=== PATIENT | male | born 1965 | race Caucasian/White ===

== ENCOUNTER 2017-04-16 07:31 | Emergency (ER) | payer OTHER ==
[~2017-04-16] VITALS: Ht 167.6 cm; Wt 62.2 kg
[2017-04-16] MEDS ORDERED: LIDOCAINE 1%, 20ML ONE (08:19)
[2017-04-16] MEDS ORDERED: KETOROLAC 30 MG/1 ML ONE (08:19)
[2017-04-16] MEDS ORDERED: SODIUM CHLORIDE 0.9% 1,000ML IVBOLUS ONE (08:30)
[2017-04-16] MEDS ORDERED: KETOROLAC 30 MG/1 ML IM ONE (08:30)
[2017-04-16 09:00] LABS: BLOOD UREA NITROGEN 17 mg/dL (7-18)
[2017-04-16 09:06] LABS: HEMATOCRIT 43.4 % (39.2-51.8); HEMOGLOBIN 15.1 g/dL (13.7-18.0); WHITE BLOOD COUNT 12.3 x10^3/uL (3.4-10)
[2017-04-16 11:05] VITALS: BP 147/89
== END 2017-04-16 11:21 | disposition home or self-care (01) ==
LOC: ED 09:21
DX: L03.115 Cellulitis of right lower limb (principal)
CPT/HCPCS: 36415; 73564; 80048; 82040; 82945; 83615; 84157; 84550; 84560; 85025; 85651; 85810; 86140; 87070; 87205; 89050; 89060; 96360; 96361; 96372; 99285; J1885; J7030

== ENCOUNTER 2020-04-25 19:41 | Inpatient (IN) | payer MEDICAID, OTHER ==
[~2020-04-25] VITALS: Ht 180.3 cm; Wt 62.7 kg
--- NOTE | 2020-04-25 19:57 | NUR ---
LATE ENTRY SUMMARY NOTE: EKG DONE. PT IMMEDIATELY PLACED ON CARDIAC, BP AND O2 MONITORS. RESPIRATOINS EVEN AND UNLABORED. PT A&OX4, ONLY KNOWS YEAR, WHEN ASKED WHAT DAY IT IS STATES "I DON'T KEEP TRACK OF THAT." PT'S ONLY CONCERN IS LEFT SIDE POOL, DENIES LIGHT SENSITIVITY. PT'S PUPILS ARE SMALL IN SIZE AND THEREFORE MINIMALLY REACTIVE. PER EMS: GIRLFRIEND CALLED BECAUSE HE'S BEEN ACTING "STRANGE OVER THE LAST COUPLE OF DAYS, HE'S BEEN MORE AGGRESSIVE AND RUDE." A COUPLE DAYS AGO PT HAD A PERIOD OF DIFFICULTY SPEAKING THAT SINCE RESOLVED. PT DENIES ANY MEDICAL HX, STATES "I DON'T KNOW, IT'S BEEN A LONG TIME SINCE I'VE SEEN A DOCTOR OR GOTTEN MEDS." MOTHER HAD BRAIN ANEURYSM WHEN SHE WAS APPROX 60-65YO.
[2020-04-25] MEDS ORDERED: DIPHENHYDRAMINE 25 MG CAPSULE PO ONE (20:00)
[2020-04-25] MEDS ORDERED: ONDANSETRON 2MG/ML, 2ML IVPush ONE (20:00)
[2020-04-25] MEDS ORDERED: MORPHINE SULFATE 4 MG/ML, 1ML IVPush ONE ×2 (20:00→21:00)
[2020-04-25] MEDS ORDERED: METOCLOPRAMIDE 5 MG/ML, 2ML IVPush ONE (20:00)
--- NOTE | 2020-04-25 20:00 | NUR ---
PT TO IMAGING.
[2020-04-25 20:08] LABS: BASOPHILS # (AUTO) 0.04 x10^3/uL (0-0.1); BASOPHILS % (AUTO) 0 % (0-1); EOSINOPHILS # (AUTO) 0.16 x10^3/uL (0-0.4); EOSINOPHILS % (AUTO) 1 % (1-7); LYMPHOCYTES # (AUTO) 1.92 x10^3/uL (1-3.4); LYMPHOCYTES % (AUTO) 16 % (22-44); MD NO; MEAN CORPUSCULAR HEMOGLOBIN 31.4 pg (27.5-34.5); MEAN CORPUSCULAR HGB CONC 33.3 g/dL (33.2-36.2); MEAN CORPUSCULAR VOLUME 94.3 fL (81-97); MONOCYTES # (AUTO) 0.71 x10^3/uL (0.2-0.8); MONOCYTES % (AUTO) 6 % (2-9); NEUTROPHILS # (AUTO) 9.14 x10^3/uL (1.8-6.8); NEUTROPHILS % (AUTO) 76 % (42-75); PLATELET COUNT 355 x10^3/uL (130-400); RED BLOOD COUNT 4.69 x10^6/uL (4.38-5.82); RED CELL DISTRIBUTION WIDTH 13.2 % (9.4-14.8)
[2020-04-25] MEDS ORDERED: METOCLOPRAMIDE 5 MG/ML, 2ML ONE (20:13)
[2020-04-25] MEDS ORDERED: DIPHENHYDRAMINE 25 MG CAPSULE ONE (20:13)
[2020-04-25 20:19] LABS: ANION GAP 4 mmol/L (5-15); CALCIUM 8.9 mg/dL (8.5-10.1); CHLORIDE 111 mmol/L (98-107); CREATININE 0.82 mg/dL (0.7-1.3)
[2020-04-25] MEDS ORDERED: MORPHINE SULFATE 4 MG/ML, 1ML ONE (20:36)
[2020-04-25] MEDS ORDERED: ONDANSETRON 2MG/ML, 2ML ONE ×2 (20:36→23:04)
--- NOTE | 2020-04-25 20:41 | NUR ---
PT ABLE TO USE URINAL TO URINATE. ERP TO BEDSIDE.
[2020-04-25] MEDS: SODIUM CHLORIDE 0.9% 1,000 ML IV SCH (20:52)
[2020-04-25 20:53] LABS: INTERNATIONAL NORMALIZED RATIO 0.91 (0.93-1.1); PROTHROMBIN TIME 9.4 Seconds (9.6-11.5)
[2020-04-25] MEDS ORDERED: ONDANSETRON 2MG/ML, 2ML IVPush PRN (21:00)
[2020-04-25] MEDS ORDERED: ENALAPRILAT 1.25 MG/ML, 2ML IV ONE (21:00)
[2020-04-25] MEDS ORDERED: LEVETIRACETAM 100 MG/ML, 5ML IV SCH (21:00)
[2020-04-25] MEDS ORDERED: DOCUSATE 100 MG CAPSULE PO PRN (21:00)
--- NOTE | 2020-04-25 21:05 | NUR ---
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 PT HOB AT 45* PER ERP INSTRUCTION.
[2020-04-25 21:09] LABS: AMPHETAMINE SCREEN, URINE Positive (Negative); BARBITURATE SCREEN, URINE Negative (Negative); BENZODIAZEPINE SCREEN, URINE Negative (Negative); CANNABINOID SCREEN, URINE Negative (Negative); COCAINE SCREEN, URINE Negative (Negative); METHADONE SCREEN, URINE Negative (Negative); OPIATE SCREEN, URINE Negative (Negative)
--- NOTE | 2020-04-25 21:17 | NUR ---
ADMITTING MD AND NEUROSURGERY AT BEDSIDE. PT ANSWERING ALL QUESTIONS.
[2020-04-25] MEDS ORDERED: ENALAPRILAT 1.25 MG/ML, 1ML ONE (21:28)
--- NOTE | 2020-04-25 21:38 | NUR ---
PT MEDICATED TO MAR FOR BP. PER NEUROSURGEON VERBAL PARAMETERS STATED SBP OF 160.
[2020-04-25] MEDS ORDERED: THROMBIN 5,000 UNIT VIAL TP ONE (21:57)
[2020-04-25] MEDS ORDERED: BACITRACIN 50,000 UNIT ONE (21:57)
[2020-04-25] MEDS ORDERED: FUROSEMIDE 20 MG/2 ML ONE (21:57)
[2020-04-25] MEDS ORDERED: BUPIVACAINE/EPI 0.5% 1:200K ONE (21:57)
[2020-04-25] MEDS ORDERED: MANNITOL PMX 20% 0 ML ONE (21:57)
[2020-04-25] MEDS ORDERED: FENTANYL PF 250 MCG/5ML ONE (22:00)
[2020-04-25] MEDS: LEVETIRACETAM 500 MG in SODIUM CHLORIDE 0.9% 100 ML IV SCH (22:30)
[2020-04-25] MEDS ORDERED: LABETALOL 5MG/ML, 20ML IV PRN (22:30)
[2020-04-25] MEDS ORDERED: OXYcodone 5 MG/5 ML ORAL.SOL UDC PO PRN (22:30)
[2020-04-25] MEDS ORDERED: hydrALAzine 20 MG/ML, 1ML IV PRN (22:30)
[2020-04-25] MEDS ORDERED: morphine SULFATE 10 MG/ML, 1ML IVPush PRN (22:30)
[2020-04-25] MEDS ORDERED: FENTANYL PF 100 MCG/2ML IV PRN (22:30)
[2020-04-25] MEDS ORDERED: PROMETHAZINE 25 MG/ML, 1ML IVPush PRN (22:30)
[2020-04-25] MEDS ORDERED: HYDROmorphone 1 MG/ML, 1ML INJ IVPush PRN (22:30)
[2020-04-25] MEDS ORDERED: THROMBIN 20,000 UNIT VIAL TP ONE (22:41)
[2020-04-25 22:50] LABS: ALBUMIN 3.5 g/dL (3.4-5.0); BILIRUBIN, DIRECT 0.2 mg/dL (0.1-0.2)
[2020-04-25] MEDS ORDERED: CEFAZOLIN 1,000 MG ONE (23:04)
[2020-04-25] MEDS ORDERED: DEXAMETHASONE 4 MG/ML, 1ML ONE (23:04)
[2020-04-25] MEDS ORDERED: NEOSTIGMINE 1 MG/ML, 10ML ONE (23:04)
[2020-04-25] MEDS ORDERED: ROCURONIUM 10MG/ML,5ML ONE (23:04)
[2020-04-25] MEDS ORDERED: GLYCOPYRROLATE 0.2MG/1ML, 5ML ONE (23:04)
[2020-04-25] MEDS ORDERED: PROPOFOL 10 MG/ML, 20ML ONE (23:04)
[2020-04-25 23:31] LABS: BILIRUBIN,INDIRECT 0.2 mg/dL (0.0-2.0); BILIRUBIN,TOTAL 0.4 mg/dL (0.2-1.0); CHOL/HDL RATIO 2.5; LDL/HDL RATIO 1.3 (0.5-3.0); TOTAL PROTEIN 7.7 g/dL (6.4-8.2)
[2020-04-26] MEDS: SODIUM CHLORIDE 0.9% 1,000 ML IV SCH ×2 (00:30→10:12)
[2020-04-26 01:58] VITALS: BP 124/64
[2020-04-26 03:20] LABS: BASOPHILS # (AUTO) 0.03 x10^3/uL (0-0.1); BASOPHILS % (AUTO) 0 % (0-1); EOSINOPHILS # (AUTO) 0.02 x10^3/uL (0-0.4); EOSINOPHILS % (AUTO) 0 % (1-7); LYMPHOCYTES # (AUTO) 0.82 x10^3/uL (1-3.4); LYMPHOCYTES % (AUTO) 8 % (22-44); MD NO; MEAN CORPUSCULAR HEMOGLOBIN 31.7 pg (27.5-34.5); MEAN CORPUSCULAR HGB CONC 33.6 g/dL (33.2-36.2); MEAN CORPUSCULAR VOLUME 94.2 fL (81-97); MEAN PLATELET VOLUME 7.1 fL (7.4-10.4); MONOCYTES # (AUTO) 0.11 x10^3/uL (0.2-0.8); MONOCYTES % (AUTO) 1 % (2-9); NEUTROPHILS % (AUTO) 91 % (42-75); PLATELET COUNT 347 x10^3/uL (130-400); RED BLOOD COUNT 4.34 x10^6/uL (4.38-5.82); RED CELL DISTRIBUTION WIDTH 13.3 % (9.4-14.8)
[2020-04-26 03:31] LABS: ANION GAP 2 mmol/L (5-15); CALCIUM 8.5 mg/dL (8.5-10.1); CHLORIDE 114 mmol/L (98-107); CREATININE 0.75 mg/dL (0.7-1.3)
[2020-04-26 04:00] VITALS: BP 150/73
[2020-04-26] MEDS: hydrALAzine 20 MG/ML, 1ML IV PRN ×2 (07:21→10:11)
[2020-04-26] MEDS: LISINOPRIL 10 MG TABLET PO SCH ×2 (09:14→21:52)
[2020-04-26] MEDS: LEVETIRACETAM 500 MG in SODIUM CHLORIDE 0.9% 100 ML IV SCH ×2 (10:18→21:52)
[2020-04-27 04:00] VITALS: BP 130/77
[2020-04-27] MEDS: SODIUM CHLORIDE 0.9% 1,000 ML IV SCH ×2 (04:50→19:49)
[2020-04-27 07:38] LABS: BASOPHILS % (AUTO) 1 % (0-1); EOSINOPHILS # (AUTO) 0.08 x10^3/uL (0-0.4); EOSINOPHILS % (AUTO) 1 % (1-7); LYMPHOCYTES % (AUTO) 21 % (22-44); MD NO; MEAN CORPUSCULAR HEMOGLOBIN 31.4 pg (27.5-34.5); MEAN CORPUSCULAR HGB CONC 33.4 g/dL (33.2-36.2); MEAN PLATELET VOLUME 7.2 fL (7.4-10.4); MONOCYTES # (AUTO) 0.93 x10^3/uL (0.2-0.8); MONOCYTES % (AUTO) 8 % (2-9); NEUTROPHILS # (AUTO) 8.11 x10^3/uL (1.8-6.8); NEUTROPHILS % (AUTO) 69 % (42-75); PLATELET COUNT 359 x10^3/uL (130-400); RED BLOOD COUNT 4.23 x10^6/uL (4.38-5.82); RED CELL DISTRIBUTION WIDTH 13.1 % (9.4-14.8)
[2020-04-27 07:44] LABS: ANION GAP 5 mmol/L (5-15); CALCIUM 8.1 mg/dL (8.5-10.1); CHLORIDE 109 mmol/L (98-107); CREATININE 0.89 mg/dL (0.7-1.3)
[2020-04-27] MEDS: LEVETIRACETAM 500 MG in SODIUM CHLORIDE 0.9% 100 ML IV SCH ×2 (10:09→22:30)
[2020-04-27] MEDS: LISINOPRIL 10 MG TABLET PO SCH ×2 (10:09→19:48)
[2020-04-27] MEDS: ACETAMINOPHEN 325 MG TABLET PO PRN (17:06)
[2020-04-27] MEDS ORDERED: OXYcodone 5 MG/5 ML ORAL.SOL UDC PO PRN (17:30)
[2020-04-27] MEDS ORDERED: HYDROmorphone 1 MG/ML, 1ML INJ IV PRN (17:30)
[2020-04-28 04:09] VITALS: BP 147/86
[2020-04-28] MEDS: LISINOPRIL 10 MG TABLET PO SCH ×2 (08:24→19:12)
[2020-04-28] MEDS: LEVETIRACETAM 500 MG in SODIUM CHLORIDE 0.9% 100 ML IV SCH ×2 (08:24→22:40)
[2020-04-28] MEDS: SODIUM CHLORIDE 0.9% 1,000 ML IV SCH ×2 (10:20→22:43)
[2020-04-28] MEDS: ACETAMINOPHEN 325 MG TABLET PO PRN (19:12)
[2020-04-29 03:55] VITALS: BP 143/89
[2020-04-29] MEDS: LISINOPRIL 10 MG TABLET PO SCH ×2 (08:56→19:59)
[2020-04-29] MEDS: LEVETIRACETAM 500 MG in SODIUM CHLORIDE 0.9% 100 ML IV SCH ×2 (10:37→22:09)
[2020-04-29] MEDS: SODIUM CHLORIDE 0.9% 1,000 ML IV SCH (13:33)
[2020-04-29] MEDS: SODIUM CHLORIDE 1 GM TABLET PO SCH ×2 (16:05→19:59)
[2020-04-29 16:14] VITALS: BP 146/89
[2020-04-29 19:31] VITALS: BP 162/88
[2020-04-29 19:53] VITALS: BP 160/102
[2020-04-29 21:38] VITALS: BP 132/75
[2020-04-30 01:43] VITALS: BP 161/94
[2020-04-30 04:15] VITALS: BP 163/100
[2020-04-30] MEDS ORDERED: ENALAPRILAT 1.25 MG/ML, 1ML IV PRN (05:30)
[2020-04-30 05:42] LABS: ANION GAP 6 mmol/L (5-15); CALCIUM 8.6 mg/dL (8.5-10.1); CHLORIDE 107 mmol/L (98-107)
[2020-04-30 05:45] LABS: CREATININE 0.67 mg/dL (0.7-1.3)
[2020-04-30 05:51] LABS: BASOPHILS # (AUTO) 0.08 x10^3/uL (0-0.1); BASOPHILS % (AUTO) 1 % (0-1); EOSINOPHILS # (AUTO) 0.24 x10^3/uL (0-0.4); EOSINOPHILS % (AUTO) 2 % (1-7); LYMPHOCYTES # (AUTO) 2.37 x10^3/uL (1-3.4); LYMPHOCYTES % (AUTO) 21 % (22-44); MD NO; MEAN CORPUSCULAR HEMOGLOBIN 31.3 pg (27.5-34.5); MEAN CORPUSCULAR HGB CONC 33.6 g/dL (33.2-36.2); MEAN CORPUSCULAR VOLUME 93.2 fL (81-97); MEAN PLATELET VOLUME 6.9 fL (7.4-10.4); MONOCYTES % (AUTO) 5 % (2-9); NEUTROPHILS # (AUTO) 8.24 x10^3/uL (1.8-6.8); NEUTROPHILS % (AUTO) 72 % (42-75); PLATELET COUNT 397 x10^3/uL (130-400); RED BLOOD COUNT 4.67 x10^6/uL (4.38-5.82)
[2020-04-30 08:18] VITALS: BP 148/86
[2020-04-30] MEDS ORDERED: OXYcodone 5 MG/5 ML ORAL.SOL UDC PO PRN (08:30)
[2020-04-30] MEDS ORDERED: ACETAMINOPHEN 325 MG TABLET PO PRN (08:30)
[2020-04-30] MEDS ORDERED: SODIUM CHLORIDE 1 GM TABLET PO SCH (09:00)
[2020-04-30] MEDS ORDERED: AMLODIPINE 2.5 MG TABLET PO SCH (09:00)
[2020-04-30] MEDS: LISINOPRIL 10 MG TABLET PO SCH (09:44)
[2020-04-30] MEDS: LEVETIRACETAM 500 MG in SODIUM CHLORIDE 0.9% 100 ML IV SCH (10:49)
[2020-04-30 12:19] VITALS: BP 138/83
[2020-04-30] MEDS ORDERED: SODIUM CHLORIDE 0.9% 1,000 ML IV SCH (20:52)
[2020-04-30] MEDS ORDERED: LEVETIRACETAM 500 MG TABLET PO SCH (21:00)
== END 2020-04-30 17:18 | disposition left against medical advice (07) | DRG 26 ==
LOC: ED 21:11 → EDIP 21:24 → CCU 04-26 00:25 → 4WST 04-29 14:10 → CCU 04-29 14:11 → 4WST 04-29 14:54
PROVIDERS: ADMIT Family Medicine; ATTEND Internal Medicine
PROC: 30233R1 Transfusion of Nonautologous Platelets into Peripheral Vein, Percutaneous Approach (ICD-10-PCS; 2020-04-25)
PROC: 00C40ZZ Extirpation of Matter from Intracranial Subdural Space, Open Approach (ICD-10-PCS; principal; 2020-04-25 22:00)
DX: I62.01 Nontraumatic acute subdural hemorrhage (principal); R41.4 Neurologic neglect syndrome; F15.10 Other stimulant abuse, uncomplicated; F17.200 Nicotine dependence, unspecified, uncomplicated; I10 Essential (primary) hypertension; R47.01 Aphasia; I62.03 Nontraumatic chronic subdural hemorrhage; H53.149 Visual discomfort, unspecified; Z53.29 Procedure and treatment not carried out because of patient's decision for other reasons; Z20.828 Contact with and (suspected) exposure to other viral communicable diseases
CPT/HCPCS: 36415; 36430; 70450; 80048; 80061; 80076; 80307; 83735; 84295; 85025; 85347; 85384; 85576; 85610; 85730; 86850; 86900; 87081; 87635; 93005; 96374; 96375; 99291; C1713; G0378; J0690; J1100; J1953; J2405; J2704; J2710; J3010; C1781; J0360; J1940; J2270; J2765; J7030; P9035; Q0163

== ENCOUNTER 2020-10-25 13:24 | Emergency (ER) | payer MEDICAID ==
[~2020-10-25] VITALS: Ht 170.2 cm; Wt 72.0 kg
--- NOTE | 2020-10-25 13:37 | NUR ---
Pt here for medical clearance from shelter. Hypertensive, no complaints of CP, SOB, blrry vision, POOL. Pt with recent brain aneurysm/surgery. Saul in place. States some dizziness at times, not currently.
[2020-10-25] MEDS ORDERED: SODIUM CHLORIDE FLUSH 10ML SYR IVF ONE (14:00)
[2020-10-25] MEDS ORDERED: LABETALOL 5MG/ML, 20ML IVPush ONE (14:00)
[2020-10-25] MEDS ORDERED: LABETALOL 5MG/ML, 20ML ONE (14:04)
--- NOTE | 2020-10-25 14:10 | NUR ---
BREAK RN: PIV, LABS SENT, MEDICATED PER ORDERS.
[2020-10-25 14:16] LABS: BASOPHILS % (AUTO) 1 % (0-1); EOSINOPHILS % (AUTO) 2 % (1-7); LYMPHOCYTES % (AUTO) 22 % (22-44); MEAN CORPUSCULAR HEMOGLOBIN 31.5 pg (27.5-34.5); MEAN CORPUSCULAR HGB CONC 35.1 g/dL (33.2-36.2); MEAN PLATELET VOLUME 7.2 fL (7.4-10.4); MONOCYTES % (AUTO) 6 % (2-9); NEUTROPHILS % (AUTO) 69 % (42-75); PLATELET COUNT 275 x10^3/uL (130-400); RED BLOOD COUNT 4.92 x10^6/uL (4.38-5.82); RED CELL DISTRIBUTION WIDTH 13.7 % (9.4-14.8)
[2020-10-25 14:17] LABS: MD NO
[2020-10-25 14:26] LABS: ALBUMIN 3.8 g/dL (3.4-5.0); ANION GAP 4 mmol/L (5-15); CALCIUM 8.6 mg/dL (8.5-10.1); CHLORIDE 109 mmol/L (98-107)
[2020-10-25 14:30] LABS: TROPONIN I < 0.015 ng/mL (0.000-0.045)
--- NOTE | 2020-10-25 14:34 | NUR ---
BP improving. Pt appears more lathergic. Per officer at bedside, pt is a known heroin user. Unsure if pt used prior to arrest. Pt to CT.
--- NOTE | 2020-10-25 15:07 | NUR ---
Medicated with clonidine for continued HTN
--- NOTE | 2020-10-25 16:00 | NUR ---
task rn note: pt remains hypertensive. po meds administered as ordered. Pt denies pain at this time.
[2020-10-25 17:04] VITALS: BP 148/86
== END 2020-10-25 17:05 ==
LOC: ED 13:29
DX: R42 Dizziness and giddiness (principal); I10 Essential (primary) hypertension; R51.9 Headache, unspecified; R94.31 Abnormal electrocardiogram [ECG] [EKG]; Z72.9 Problem related to lifestyle, unspecified
CPT/HCPCS: 36415; 70450; 71045; 80048; 82040; 84484; 85025; 93005; 96374; 99285